=== PATIENT | female | born 1970 | race Caucasian/White ===

== ENCOUNTER 2016-11-16 12:08 | Emergency (ER) | payer OTHER ==
[2016-11-16] MEDS ORDERED: HYDROmorphone 1 MG/ML 1 ML SYRINGE IVP STA (12:29)
[2016-11-16] MEDS ORDERED: ONDANSETRON 4 MG/2 ML VIAL IVP STA (12:29)
--- NOTE | 2016-11-16 12:32 | ED ---
General Adult HPI - General Chief complaint: Abdominal Pain Stated complaint: Female /syncope Time Seen by Provider: 11/16/16 12:23 Source: patient, RN notes reviewed Mode of arrival: wheelchair Limitations: no limitations - History of Present Illness Initial comments: Patient 46-year-old female who presents emergency room today with a chief complaint of abdominal pain that started this morning. She does admit that when she is ovulating she experiences increased pain in the abdomen. She states this is same type pain and symptoms that she's had before but was much worse this morning. She states she's feeling pain in her lower abdomen pressure radiating up. Does admit some symptoms of nausea vomiting which is unusual for her with this pain. States pain was much higher than normal. She states she does have an appointment with her LOW EMISSION AUTOMOBILE DESIGNER this afternoon. She states pain was increasing in she decided to come here to the emergency room. Patient denies any recent fever, chills, shortness of breath, chest pain, back pain, numbness or tingling, dysuria or hematuria, constipation or diarrhea, headaches or visual changes, or any other complaints. - Related Data Home Medications Medication Instructions Recorded Confirmed Calcium Carbonate [Calcium] 600 mg PO DAILY 11/16/16 11/16/16 Cholecalciferol [Vitamin D3] 1,000 unit PO DAILY 11/16/16 11/16/16 Etodolac (Unknown Dose) 1 tab PO ONCE 11/16/16 11/16/16 traMADol HCL [Ultram] 50 mg PO ONCE 11/16/16 11/16/16 Previous Rx's Medication Instructions Recorded Etodolac [Lodine] 400 mg PO BID #15 tablet 11/16/16 Ondansetron Odt [Zofran ODT] 4 mg PO Q8HR PRN #20 tab 11/16/16 traMADol HCl [Ultram] 50 mg PO Q6H PRN #20 tab 11/16/16 Allergies Allergy/AdvReac Type Severity Reaction Status Date / Time banana Allergy Rash/Hives Verified 11/16/16 12:44 latex Allergy Rash/Hives Verified 11/16/16 12:44 Sulfa (Sulfonamide Allergy Swelling Verified 11/16/16 12:44 Antibiotics) sulfite Allergy Swelling Verified 11/16/16 12:44 Review of Systems ROS Statement: Those systems with pertinent positive or pertinent negative responses have been documented in the HPI. ROS Other: All systems not noted in ROS Statement are negative. Past Medical History Past Medical History: Thyroid Disorder Additional Past Medical History / Comment(s): ganglion cyst, palpitation 3 week of cycle - PMDD, in vitro (2 sets of twins). History of Any Multi-Drug Resistant Organisms: None Reported Past Surgical History: Section Past Anesthesia/Blood Transfusion Reactions: No Reported Reaction Past Psychological History: Anxiety Smoking Status: Never smoker Past Alcohol Use History: None Reported Past Drug Use History: None Reported - Past Family History Father Family Medical History: Cancer Additional Family Medical History / Comment(s): colon CA General Exam - General Exam Comments Initial Comments: General: The patient is awake and alert, in no distress, and does not appear acutely ill. Eye: Pupils are equal, round and reactive to light, extra-ocular movements are intact. No nystagmus. There is normal conjunctiva bilaterally. No signs of icterus. Ears, nose, mouth and throat: There are moist mucous membranes and no oral lesions. Neck: The neck is supple, there is no tenderness or JVD. Cardiovascular: There is a regular rate and rhythm. No murmur, rub or gallop is appreciated. Respiratory: Lungs are clear to auscultation, respirations are non-labored, breath sounds are equal. No wheezes, stridor, rales, or rhonchi. Gastrointestinal: Patient has normal appearance abdomen. Normal bowel sounds. Abdomen soft on palpation. Patient does have tenderness greatest in the left lower quadrant. No rebound tenderness no guarding. No CVA tenderness. Musculoskeletal: Normal ROM, no tenderness. Strength 5/5. Sensation intact. Pulses equal bilaterally 2+. Neurological: A&O x 3. CN II-XII intact, There are no obvious motor or sensory deficits. Coordination appears grossly intact. Speech is normal. Skin: Skin is warm and dry and no rashes or lesions are noted. Psychiatric: Cooperative, appropriate mood & affect, normal judgment. Limitations: no limitations Course Vital Signs 11/16/16 11/16/16 12:11 14:41 Temperature 98.3 F 97.9 F Pulse Rate 88 76 Respiratory 20 18 Rate Blood Pressure 120/55 108/56 O2 Sat by Pulse 99 98 Oximetry Medical Decision Making - Medical Decision Making Case discussed in detail with attending physician Dr. Kim. US shows Heterogeneous myometrium. Could reflect underlying leiomyomatous. Weakness no tenderness on the right side of the abdomen. Mildly tender on the left. There were discussed with patient about CT abdomen pelvis here in the emergency room. She states the pain does feel similar to pain that she's experienced in the past. She is quite CAT scan at this time. States she will follow-up. Advised to return if symptoms increase worsen. Will be discharged home advised follow- up with her COMPUTER SUPPORT TECHNICIAN. Will be given a prescription of Ultram to go home with. She states she's used this before in the past for this type pain. She states is consistent with pain that she's had in the past when she is ovulating with her uterus. She also be given nausea medication at home with her symptoms. Advised return for any other concerns. - Lab Data Result diagrams: 11/16/16 12:39 11/16/16 12:39 Lab Results 11/16/16 11/16/16 11/16/16 Range/Units 12:39 12:39 12:39 WBC 14.6 H (3.8-10.6) k/uL RBC 4.98 (3.80-5.40) m/uL Hgb 14.8 (11.4-16.0) gm/dL Hct 44.5 (34.0-46.0) % MCV 89.3 (80.0-100.0) fL MCH 29.7 (25.0-35.0) pg MCHC 33.3 (31.0-37.0) g/dL RDW 13.5 (11.5-15.5) % Plt Count 180 (150-450) k/uL Neutrophils % 88 % Lymphocytes % 6 % Monocytes % 3 % Eosinophils % 1 % Basophils % 0 % Neutrophils # 12.9 H (1.3-7.7) k/uL Lymphocytes # 0.9 L (1.0-4.8) k/uL Monocytes # 0.5 (0-1.0) k/uL Eosinophils # 0.2 (0-0.7) k/uL Basophils # 0.1 (0-0.2) k/uL Sodium (137-145) mmol/L Potassium (3.5-5.1) mmol/L Chloride (98-107) mmol/L Carbon Dioxide (22-30) mmol/L Anion Gap mmol/L BUN (7-17) mg/dL Creatinine (0.52-1.04) mg/dL Est GFR (MDRD) Af Amer (>60 ml/min/1.73 sqM) Est GFR (MDRD) Non-Af (>60 ml/min/1.73 sqM) Glucose (74-99) mg/dL Plasma Lactic Acid Nas 1.2 (0.7-2.0) mmol/L Calcium (8.4-10.2) mg/dL Total Bilirubin (0.2-1.3) mg/dL AST (14-36) U/L ALT (9-52) U/L Alkaline Phosphatase (38-126) U/L Total Protein (6.3-8.2) g/dL Albumin (3.5-5.0) g/dL Amylase 35 (30-110) U/L Lipase 35 (23-300) U/L Urine Color Urine Appearance (Clear) Urine pH (5.0-8.0) Ur Specific [place] (1.001-1.035) Urine Protein (Negative) Urine Glucose (UA) (Negative) Urine Ketones (Negative) Urine Blood (Negative) Urine Nitrite (Negative) Urine Bilirubin (Negative) Urine Urobilinogen (<2.0) mg/dL Ur Leukocyte Esterase (Negative) Urine WBC (0-5) /hpf Ur Squamous Epith Cells (0-4) /hpf Urine Mucus (None) /hpf Urine HCG, Qual (Not Detectd) 11/16/16 11/16/16 11/16/16 Range/Units 12:39 12:59 12:59 WBC (3.8-10.6) k/uL RBC (3.80-5.40) m/uL Hgb (11.4-16.0) gm/dL Hct (34.0-46.0) % MCV (80.0-100.0) fL MCH (25.0-35.0) pg MCHC (31.0-37.0) g/dL RDW (11.5-15.5) % Plt Count (150-450) k/uL Neutrophils % % Lymphocytes % % Monocytes % % Eosinophils % % Basophils % % Neutrophils # (1.3-7.7) k/uL Lymphocytes # (1.0-4.8) k/uL Monocytes # (0-1.0) k/uL Eosinophils # (0-0.7) k/uL Basophils # (0-0.2) k/uL Sodium 139 (137-145) mmol/L Potassium 4.0 (3.5-5.1) mmol/L Chloride 109 H (98-107) mmol/L Carbon Dioxide 20 L (22-30) mmol/L Anion Gap 10 mmol/L BUN 12 (7-17) mg/dL Creatinine 0.66 (0.52-1.04) mg/dL Est GFR (MDRD) Af Amer >60 (>60 ml/min/1.73 sqM) Est GFR (MDRD) Non-Af >60 (>60 ml/min/1.73 sqM) Glucose 104 H (74-99) mg/dL Plasma Lactic Acid Nas (0.7-2.0) mmol/L Calcium 9.2 (8.4-10.2) mg/dL Total Bilirubin 1.7 H (0.2-1.3) mg/dL AST 25 (14-36) U/L ALT 35 (9-52) U/L Alkaline Phosphatase 62 (38-126) U/L Total Protein 6.6 (6.3-8.2) g/dL Albumin 4.1 (3.5-5.0) g/dL Amylase (30-110) U/L Lipase (23-300) U/L Urine Color Yellow Urine Appearance Clear (Clear) Urine pH 6.5 (5.0-8.0) Ur Specific [place] 1.014 (1.001-1.035) Urine Protein Negative (Negative) Urine Glucose (UA) Negative (Negative) Urine Ketones Trace H (Negative) Urine Blood Negative (Negative) Urine Nitrite Negative (Negative) Urine Bilirubin Negative (Negative) Urine Urobilinogen <2.0 (<2.0) mg/dL Ur Leukocyte Esterase Trace H (Negative) Urine WBC 3 (0-5) /hpf Ur Squamous Epith Cells 1 (0-4) /hpf Urine Mucus Rare H (None) /hpf Urine HCG, Qual Not Detected (Not Detectd) Disposition Clinical Impression: Abdominal pain Disposition: HOME SELF-CARE Condition: Good Instructions: Abdominal Pain (ED) Additional Instructions: Please follow-up with your LOW EMISSION AUTOMOBILE DESIGNER over the next 1-2 days. Please use pain medication and nausea medication as prescribed. Please return to emergency room if any symptoms increase worsen or for any other concerns. Prescriptions: Etodolac [Lodine] 400 mg PO BID #15 tablet Ondansetron Odt [Zofran ODT] 4 mg PO Q8HR PRN #20 tab PRN Reason: Nausea traMADol HCl [Ultram] 50 mg PO Q6H PRN #20 tab PRN Reason: Pain Referrals: Chris Gross MD [Primary Care Provider] - 1-2 days Luba Camaar MD [STAFF PHYSICIAN] - 1-2 days Time of Disposition: 14:41
[2016-11-16 12:59] LABS: Basophils # (A) 0.1 k/uL (0-0.2); Basophils % (A) 0 %; CH 29.7; CHCM 33.5; Eosinophils # (A) 0.2 k/uL (0-0.7); Eosinophils % (A) 1 %; HCT 44.5 % (34.0-46.0); HDW 2.31; HGB 14.8 gm/dL (11.4-16.0); Luc # (Auto) 0.09; Luc % (Auto) 1; Lymphocytes # (A) 0.9 k/uL (1.0-4.8); Lymphocytes % (A) 6 %; MCH 29.7 pg (25.0-35.0); MCHC 33.3 g/dL (31.0-37.0); MCV 89.3 fL (80.0-100.0); Mean Platelet Volume 9.6; Monocytes # (A) 0.5 k/uL (0-1.0); Monocytes % (A) 3 %; Neutrophils # (A) 12.9 k/uL (1.3-7.7); Neutrophils % (A) 88 %; RBC 4.98 m/uL (3.80-5.40); RDW 13.5 % (11.5-15.5); WBC 14.6 k/uL (3.8-10.6); WBC (Perox) 13.95
--- NOTE | 2016-11-16 13:07 | XR ---
EXAMINATION TYPE: XR KUB DATE OF EXAM: 11/16/2016 COMPARISON: NONE HISTORY: Pain TECHNIQUE: Single supine KUB image of the abdomen is obtained FINDINGS: Small bowel demonstrates no evidence for dilatation or air fluid levels. Gas and fecal material is seen in non-distended colon. No convincing evidence for pneumoperitoneum. No unusual calcifications. The lung bases are clear. The osseous structures are intact. IMPRESSION: 1. Overall nonobstructive bowel gas pattern.
[2016-11-16 13:14] LABS: Amylase 35 U/L (30-110)
[2016-11-16 13:33] LABS: Appearance,Urine Clear (Clear); Bilirubin,Urine Negative (Negative); Glucose,Urine (UA) Negative (Negative); Ketones,Urine Trace (Negative); Leukocyte Esterase,Urine Trace (Negative); Mucus,Urine Rare /hpf; Nitrite,Urine Negative (Negative); PH, Urine 6.5 (5.0-8.0); Particle Count 1597; Protein,Urine Negative (Negative); Specific Gravity,Urine 1.014 (1.001-1.035); Squamous Epithelial Cell,Urine 1 /hpf (0-4); UA Billing (MACRO vs. MICRO) MICRO; Urobilinogen,Urine <2.0 mg/dL (<2.0); WBC,Urine 3 /hpf (0-5)
--- NOTE | 2016-11-16 13:53 | US ---
EXAMINATION TYPE: US transvaginal DATE OF EXAM: 11/16/2016 COMPARISON: NONE CLINICAL HISTORY: pain. Pelvic pain x 1 day, 2, para 4: 2 sets of twins, history of 2 c-secti ons and tubal ligation TECHNIQUE: Transvaginal (TV) Date of LMP: 2+ weeks ago EXAM MEASUREMENTS: Uterus: 12.3 x 6.9 x 6.3 cm Endometrial Stripe: 1.0 cm Right Ovary: not seen Left Ovary: not seen 1. Uterus: anteverted, enlarged, bulky, heterogeneous echotexture without any definite lesions seen at this time 2. Endometrium: appears wnl 3. Right Ovary: not seen at this time due to overlying bowel gas 4. Left Ovary: not seen at this time due to overlying bowel gas 5. Bilateral Adnexa: wnl 6. Posterior cul-de-sac: small amount of free fluid seen IMPRESSION: 1. The uterus is enlarged with heterogenous myometrium. This could reflect underlying small leiomyoma tous change. 2. Small amount of free fluid within the cul-de-sac.
[2016-11-16 14:17] LABS: ALT 35 U/L (9-52); AST 25 U/L (14-36); Alkaline Phosphatase 62 U/L (38-126); Anion Gap 10 mmol/L; Blood Urea Nitrogen 12 mg/dL (7-17); Calcium 9.2 mg/dL (8.4-10.2); Carbon Dioxide 20 mmol/L (22-30); Chloride 109 mmol/L (98-107); Glucose 104 mg/dL (74-99); Non-African American GFR(MDRD) >60 (>60 ml/min/1.73 sqM); Sodium 139 mmol/L (137-145); Total Bilirubin 1.7 mg/dL (0.2-1.3); Total Protein 6.6 g/dL (6.3-8.2)
[2016-11-16 15:07] VITALS: BP 100/56; PULSE 65; RESP 20; TEMP 98.4
== END 2016-11-16 15:07 | disposition home or self-care (01) ==
LOC: EC 12:08
DX: R10.32 Left lower quadrant pain (principal); R11.2 Nausea with vomiting, unspecified; R55 Syncope and collapse; Z79.1 Long term (current) use of non-steroidal anti-inflammatories (NSAID); Z79.891 Long term (current) use of opiate analgesic; Z79.899 Other long term (current) drug therapy; Z88.2 Allergy status to sulfonamides; Z91.040 Latex allergy status; Z91.018 Allergy to other foods
CPT/HCPCS: 36415; 80053; 82150; 83605; 83690; 85025; 81001; 81025; 87491; 87591; 74000; 76830; 99284; 96374; 96375; J2405; J1170

== ENCOUNTER 2016-11-18 21:37 | Emergency (ER) | payer OTHER ==
[2016-11-18 21:48] VITALS: RESP 18
[2016-11-18] MEDS ORDERED: SODIUM CHLORIDE 0.9% 1,000 ML IV STA (21:59)
[2016-11-18] MEDS ORDERED: ACETAMINOPHEN TAB 500 MG TAB PO STA (22:00)
[2016-11-18] MEDS ORDERED: ONDANSETRON 4 MG/2 ML VIAL IVP STA (22:00)
--- NOTE | 2016-11-18 22:05 | ED ---
General Adult HPI - General Chief complaint: Abdominal Pain Stated complaint: bloating/no bowel movement/fever Time Seen by Provider: 11/18/16 21:45 Source: patient, RN notes reviewed Mode of arrival: ambulatory Limitations: no limitations - History of Present Illness Initial comments: This is a 46-year-old female who presents emergency Department complaining of abdominal pain. Patient states she was here 2 days ago with abdominal pain due to transvaginal ultrasound was negative as well as the lab work according to the patient she states she went home and continued to have abdominal pain. Patient states the pain is been constant diffusely in her upper abdomen. Patient states driving the car hurts every time she gets a pump. Patient's coming in today because she now has a low-grade fever 100.4. Patient denies any vomiting since 2 days ago. Patient denies any diarrhea. Patient states she has no appetite whatsoever. Patient denies any difficulty breathing or cough patient denies any sore throat patient denies any neck pain. Patient denies any dysuria hematuria urinary frequency. - Related Data Home Medications Medication Instructions Recorded Confirmed L.acidoph,Paracasei, B.lactis 1 cap PO DAILY 11/18/16 11/18/16 [Probiotic] Simethicone 80 mg PO QID PRN 11/18/16 11/18/16 Previous Rx's Medication Instructions Recorded Etodolac [Lodine] 400 mg PO BID #15 tablet 11/16/16 Allergies Allergy/AdvReac Type Severity Reaction Status Date / Time avocado Allergy Swelling Verified 11/18/16 22:25 banana Allergy Rash/Hives Verified 11/18/16 22:25 latex Allergy Rash/Hives Verified 11/18/16 22:25 strawberry Allergy Swelling Verified 11/18/16 22:25 Sulfa (Sulfonamide Allergy Swelling Verified 11/18/16 22:25 Antibiotics) sulfite Allergy Swelling Verified 11/18/16 22:25 Review of Systems ROS Statement: Those systems with pertinent positive or pertinent negative responses have been documented in the HPI. ROS Other: All systems not noted in ROS Statement are negative. Past Medical History Past Medical History: Thyroid Disorder Additional Past Medical History / Comment(s): ganglion cyst, palpitation 3 week of cycle - PMDD, in vitro (2 sets of twins). History of Any Multi-Drug Resistant Organisms: None Reported Past Surgical History: Section Past Anesthesia/Blood Transfusion Reactions: No Reported Reaction Past Psychological History: Anxiety Smoking Status: Never smoker Past Alcohol Use History: None Reported Past Drug Use History: None Reported - Past Family History Father Family Medical History: Cancer Additional Family Medical History / Comment(s): colon CA General Exam - General Exam Comments Initial Comments: GENERAL: Patient is well-developed and well-nourished. Patient is nontoxic and well- hydrated and is in mild distress. ENT: Neck is soft and supple. No significant lymphadenopathy is noted. Oropharynx is clear. Moist mucous membranes. Neck has full range of motion without eliciting any pain. EYES: The sclera were anicteric and conjunctiva were pink and moist. Extraocular movements were intact and pupils were equal round and reactive to light. Eyelids were unremarkable. PULMONARY: Unlabored respirations. Good breath sounds bilaterally. No audible rales rhonchi or wheezing was noted. CARDIOVASCULAR: There is a regular rate and rhythm without any murmurs gallops or rubs. ABDOMEN: Patient is right upper quadrant abdominal pain. No palpable organomegaly was noted. There is no palpable pulsatile mass. SKIN: Skin is clear with no lesions or rashes and otherwise unremarkable. NEUROLOGIC: Patient is alert and oriented x3. Cranial nerves II through XII are grossly intact. Motor and sensory are also intact. Normal speech, volume and content. Symmetrical smile. MUSCULOSKELETAL: Normal extremities with adequate strength and full range of motion. No lower extremity swelling or edema. No calf tenderness. LYMPHATICS: No significant lymphadenopathy is noted PSYCHIATRIC: Normal psychiatric evaluation. Normal interpersonal interactions appears functionally intact in deals appropriately with others. No signs of depression. Limitations: no limitations Course Vital Signs 11/18/16 11/18/16 11/18/16 21:44 23:06 23:55 Temperature 100.4 F H 98.1 F Pulse Rate 89 72 76 Respiratory 18 18 18 Rate Blood Pressure 136/73 99/54 102/56 O2 Sat by Pulse 98 98 95 Oximetry 11/19/16 01:00 Temperature 98.0 F Pulse Rate 70 Respiratory 18 Rate Blood Pressure 96/54 O2 Sat by Pulse 96 Oximetry Medical Decision Making - Medical Decision Making CAT scan of the pelvis showed no acute abnormality. I went back into the room patient stated the pain is gotten better since been emergency department and in fact over the last 2 days and gotten considerably better. Patient states she had a bowel movement just prior to coming to the emergency department. Patient states she'll follow-up with her primary care doctor tomorrow. - Lab Data Result diagrams: 11/18/16 22:17 11/18/16 22:17 Lab Results 11/18/16 11/18/16 11/18/16 Range/Units 22:17 22:17 22:17 WBC 7.9 (3.8-10.6) k/uL RBC 4.53 (3.80-5.40) m/uL Hgb 13.7 (11.4-16.0) gm/dL Hct 39.8 (34.0-46.0) % MCV 87.7 (80.0-100.0) fL MCH 30.2 (25.0-35.0) pg MCHC 34.5 (31.0-37.0) g/dL RDW 13.1 (11.5-15.5) % Plt Count 170 (150-450) k/uL Neutrophils % 81 % Lymphocytes % 11 % Monocytes % 5 % Eosinophils % 2 % Basophils % 0 % Neutrophils # 6.4 (1.3-7.7) k/uL Lymphocytes # 0.9 L (1.0-4.8) k/uL Monocytes # 0.4 (0-1.0) k/uL Eosinophils # 0.1 (0-0.7) k/uL Basophils # 0.0 (0-0.2) k/uL Sodium 139 (137-145) mmol/L Potassium 3.9 (3.5-5.1) mmol/L Chloride 103 (98-107) mmol/L Carbon Dioxide 25 (22-30) mmol/L Anion Gap 11 mmol/L BUN 10 (7-17) mg/dL Creatinine 0.80 (0.52-1.04) mg/dL Est GFR (MDRD) Af Amer >60 (>60 ml/min/1.73 sqM) Est GFR (MDRD) Non-Af >60 (>60 ml/min/1.73 sqM) Glucose 91 (74-99) mg/dL Plasma Lactic Acid Nas (0.7-2.0) mmol/L Calcium 9.5 (8.4-10.2) mg/dL Total Bilirubin 1.8 H (0.2-1.3) mg/dL AST 20 (14-36) U/L ALT 46 (9-52) U/L Alkaline Phosphatase 84 (38-126) U/L Total Protein 6.3 (6.3-8.2) g/dL Albumin 3.7 (3.5-5.0) g/dL Amylase 30 (30-110) U/L Lipase 24 (23-300) U/L Urine Color Urine Appearance (Clear) Urine pH (5.0-8.0) Ur Specific [place] (1.001-1.035) Urine Protein (Negative) Urine Glucose (UA) (Negative) Urine Ketones (Negative) Urine Blood (Negative) Urine Nitrite (Negative) Urine Bilirubin (Negative) Urine Urobilinogen (<2.0) mg/dL Ur Leukocyte Esterase (Negative) Urine RBC (0-5) /hpf Urine WBC (0-5) /hpf Ur Squamous Epith Cells (0-4) /hpf Urine Mucus (None) /hpf Urine HCG, Qual Not Detected (Not Detectd) 11/18/16 11/18/16 Range/Units 22:17 22:17 WBC (3.8-10.6) k/uL RBC (3.80-5.40) m/uL Hgb (11.4-16.0) gm/dL Hct (34.0-46.0) % MCV (80.0-100.0) fL MCH (25.0-35.0) pg MCHC (31.0-37.0) g/dL RDW (11.5-15.5) % Plt Count (150-450) k/uL Neutrophils % % Lymphocytes % % Monocytes % % Eosinophils % % Basophils % % Neutrophils # (1.3-7.7) k/uL Lymphocytes # (1.0-4.8) k/uL Monocytes # (0-1.0) k/uL Eosinophils # (0-0.7) k/uL Basophils # (0-0.2) k/uL Sodium (137-145) mmol/L Potassium (3.5-5.1) mmol/L Chloride (98-107) mmol/L Carbon Dioxide (22-30) mmol/L Anion Gap mmol/L BUN (7-17) mg/dL Creatinine (0.52-1.04) mg/dL Est GFR (MDRD) Af Amer (>60 ml/min/1.73 sqM) Est GFR (MDRD) Non-Af (>60 ml/min/1.73 sqM) Glucose (74-99) mg/dL Plasma Lactic Acid Nas 0.7 (0.7-2.0) mmol/L Calcium (8.4-10.2) mg/dL Total Bilirubin (0.2-1.3) mg/dL AST (14-36) U/L ALT (9-52) U/L Alkaline Phosphatase (38-126) U/L Total Protein (6.3-8.2) g/dL Albumin (3.5-5.0) g/dL Amylase (30-110) U/L Lipase (23-300) U/L Urine Color Yellow Urine Appearance Clear (Clear) Urine pH 5.5 (5.0-8.0) Ur Specific [place] 1.013 (1.001-1.035) Urine Protein Trace H (Negative) Urine Glucose (UA) Negative (Negative) Urine Ketones Negative (Negative) Urine Blood Trace H (Negative) Urine Nitrite Negative (Negative) Urine Bilirubin 2+ H (Negative) Urine Urobilinogen <2.0 (<2.0) mg/dL Ur Leukocyte Esterase Negative (Negative) Urine RBC 1 (0-5) /hpf Urine WBC 2 (0-5) /hpf Ur Squamous Epith Cells 1 (0-4) /hpf Urine Mucus Rare H (None) /hpf Urine HCG, Qual (Not Detectd) Disposition Clinical Impression: Abdominal pain Disposition: HOME SELF-CARE Condition: Good Instructions: Abdominal Pain (ED) Referrals: Chris Gross MD [Primary Care Provider] - 1-2 days Time of Disposition: 00:33
[2016-11-18 22:31] LABS: Basophils % (A) 0 %; CH 29.3; CHCM 33.6; Eosinophils # (A) 0.1 k/uL (0-0.7); Eosinophils % (A) 2 %; HCT 39.8 % (34.0-46.0); HDW 2.32; HGB 13.7 gm/dL (11.4-16.0); Luc # (Auto) 0.11; Luc % (Auto) 1; Lymphocytes # (A) 0.9 k/uL (1.0-4.8); Lymphocytes % (A) 11 %; MCH 30.2 pg (25.0-35.0); MCHC 34.5 g/dL (31.0-37.0); MCV 87.7 fL (80.0-100.0); Mean Platelet Volume 9.5; Monocytes # (A) 0.4 k/uL (0-1.0); Monocytes % (A) 5 %; Neutrophils # (A) 6.4 k/uL (1.3-7.7); Neutrophils % (A) 81 %; RBC 4.53 m/uL (3.80-5.40); RDW 13.1 % (11.5-15.5); WBC 7.9 k/uL (3.8-10.6); WBC (Perox) 7.89
[2016-11-18 22:33] LABS: Appearance,Urine Clear (Clear); Bilirubin,Urine 2+ (Negative); Glucose,Urine (UA) Negative (Negative); Ketones,Urine Negative (Negative); Leukocyte Esterase,Urine Negative (Negative); Mucus,Urine Rare /hpf; Nitrite,Urine Negative (Negative); PH, Urine 5.5 (5.0-8.0); Particle Count 2340; Protein,Urine Trace (Negative); RBC,Urine 1 /hpf (0-5); Specific Gravity,Urine 1.013 (1.001-1.035); Squamous Epithelial Cell,Urine 1 /hpf (0-4); UA Billing (MACRO vs. MICRO) MICRO; Urobilinogen,Urine <2.0 mg/dL (<2.0); WBC,Urine 2 /hpf (0-5)
[2016-11-18 22:42] LABS: ALT 46 U/L (9-52); AST 20 U/L (14-36); Alkaline Phosphatase 84 U/L (38-126); Amylase 30 U/L (30-110); Anion Gap 11 mmol/L; Blood Urea Nitrogen 10 mg/dL (7-17); Calcium 9.5 mg/dL (8.4-10.2); Carbon Dioxide 25 mmol/L (22-30); Chloride 103 mmol/L (98-107); Glucose 91 mg/dL (74-99); Non-African American GFR(MDRD) >60 (>60 ml/min/1.73 sqM); Potassium 3.9 mmol/L (3.5-5.1); Sodium 139 mmol/L (137-145); Total Bilirubin 1.8 mg/dL (0.2-1.3); Total Protein 6.3 g/dL (6.3-8.2)
--- NOTE | 2016-11-18 22:47 | XR ---
EXAM: XR Abdomen, 1 View CLINICAL HISTORY: Reason: abdominal pain TECHNIQUE: Frontal supine view of the abdomen/pelvis. COMPARISON: 11/16/2016 FINDINGS: Intraperitoneal space: No pneumatosis or pneumoperitoneum. Gastrointestinal tract: Unremarkable. No dilation. Bones/joints: No acute fracture or malalignment. Soft tissues: Presumed tubal ligation clips are noted. Other findings: Probable hepatomegaly. IMPRESSION: No acute findings.
[2016-11-18] MEDS ORDERED: RX INFO: IV CONTRAST WAS GIVEN 1 EACH MISC MISCELLANE PRN (23:01)
--- NOTE | 2016-11-19 00:19 | CT ---
EXAM: CT Abdomen and Pelvis With Intravenous Contrast CLINICAL HISTORY: Reason: Pain TECHNIQUE: Axial computed tomography images of the abdomen and pelvis with intravenous contrast. CTDI is 13.1, 13.1 mGy and DLP is 941 mGy-cm. This CT exam was performed using one or more of the following dose reduction techniques: automated exposure control, adjustment of the mA and/or kV according to patient size, and/or use of iterative reconstruction technique. COMPARISON: No relevant prior studies available. FINDINGS: Lower thorax: No acute findings. ABDOMEN: Liver: Hepatomegaly. No focal hepatic lesions. Gallbladder and bile ducts: Unremarkable. No calcified stones. Pancreas: Unremarkable. Spleen: Unremarkable. Adrenals: Unremarkable. Kidneys and ureters: Unremarkable. No solid mass. No hydronephrosis. Stomach and bowel: Unremarkable. Bowel is nondilated. Appendix: No findings to suggest acute appendicitis. PELVIS: Bladder: Unremarkable. Reproductive: Indeterminate 2 cm crenated left adnexal cyst. ABDOMEN and PELVIS: Intraperitoneal space: Nonspecific pelvic free fluid. Surgical clips project in the right posterior pelvis. Bones/joints: No acute osseous abnormality. Soft tissues: Tiny fat-containing periumbilical hernia. Vasculature: Unremarkable. No abdominal aortic aneurysm. Lymph nodes: Unremarkable. No enlarged lymph nodes. IMPRESSION: A 2 cm crenated left adnexal cyst and trace pelvic free fluid are likely physiologic.
[2016-11-19 01:02] VITALS: BP 96/54; PULSE 70; TEMP 98
== END 2016-11-19 01:16 | disposition home or self-care (01) ==
LOC: EC 21:37
DX: R10.11 Right upper quadrant pain (principal); Z88.2 Allergy status to sulfonamides; Z88.8 Allergy status to other drugs, medicaments and biological substances; Z91.018 Allergy to other foods; Z91.040 Latex allergy status
CPT/HCPCS: 99284; 96374; 96361; 36415; 80053; 82150; 83605; 83690; 85025; 81001; 81025; 74000; 74177; J2405; Q9967

== ENCOUNTER → 2016-11-30 | Outpatient (CLI) | payer OTHER ==
--- NOTE | 2016-11-30 09:31 | NM ---
EXAMINATION TYPE: NM hepatobiliary w EF DATE OF EXAM: 11/30/2016 COMPARISON: NONE INDICATION: Chronic cholecystitis TECHNIQUE: After the intravenous administration of 5.2 mCi Tc 99m Mebrofenin hepatobiliary scintigrap hy is performed. Images were obtained immediately post injection. FINDINGS: There is prompt uptake and excretion of radiotracer by the liver. Extrahepatic ducts are identified at 8 minutes. The gallbladder is visualized within 13 minutes. Small bowel activity is noted within 19 minutes. At one hour 8 ounces of oral ensure plus is given to mimic CCK and gallbladder ejection fraction is c alculated at 96 %, which is markedly elevated. (Normal >35% and <80%.). IMPRESSION: 1. Biliary hyperkinesia with an ejection fraction of 96%.
== END | disposition home or self-care (01) ==
LOC: RADNMMAIN 07:13
PROVIDERS: ATTEND Surgery
DX: K82.8 Other specified diseases of gallbladder (principal); K81.1 Chronic cholecystitis
CPT/HCPCS: 78226; A9537

== ENCOUNTER 2016-12-02 09:13 | Day surgery (SDC) | payer OTHER ==
[2016-11-30 10:07] VITALS: BMI 30.4
[~2016-12-02 09:13] MED LIST: LACTATED RINGERS 1,000 ML IV SCH; LIDOCAINE 1% 20 ML VIAL (10MG/ML) FOR IV START INTRADERMA PRN
[2016-12-02 09:21] VITALS: RESP 18; TEMP 98
[2016-12-02] MEDS ORDERED: LACTATED RINGERS 1,000 ML IV ONE (09:24)
[2016-12-02 09:32] LABS: Glucose,Whole Blood 85 mg/dL (75-99)
[2016-12-02] MEDS ORDERED: ONDANSETRON 4 MG/2 ML VIAL IVP ONE (09:53)
[2016-12-02] MEDS ORDERED: PROPOFOL 10 MG/ML 20 ML VIAL IV ONE (10:21)
[2016-12-02] MEDS ORDERED: MIDAZOLAM 2 MG/2 ML VIAL ONE (10:21)
[2016-12-02] MEDS ORDERED: fentaNYL (PF) 50 MCG/ML 2 ML AMP ONE (10:21)
[2016-12-02] MEDS ORDERED: LIDOCAINE 1% INJ 10MG/ML (20 ML MDV) ONE (10:21)
--- NOTE | 2016-12-02 10:22 | P.GSHP ---
History of Present Illness H&P Date: 12/02/16 Chief Complaint: Abdominal pain,., Nausea, GERD This is a 46-year-old female who's had complaints of epigastric and right upper quadrant pain. She's had also issues with some left lower quadrant pain. Patient rents today for EGD and colonoscopy. Past Medical History Past Medical History: Thyroid Disorder Additional Past Medical History / Comment(s): Recent ER Visit-Abdominal pain and distention,nausea/vomiting,confusion, freq diarrhea hx ganglion cyst, palpitation at night, PMDD,blothcy skin chest History of Any Multi-Drug Resistant Organisms: None Reported Past Surgical History: Section, Tubal Ligation Additional Past Surgical History / Comment(s): x2 Past Anesthesia/Blood Transfusion Reactions: Motion Sickness, Postoperative Nausea & Vomiting (PONV) Additional Past Anesthesia/Blood Transfusion Reaction / Comment(s): takes a while to wake up with anesthesia Smoking Status: Never smoker - Past Family History Mother Family Medical History: No Reported History Father Family Medical History: Cancer Additional Family Medical History / Comment(s): colon CA Medications and Allergies Home Medications Medication Instructions Recorded Confirmed Type No Known Home Medications [No 11/30/16 11/30/16 History Known Home Medications] Allergies Allergy/AdvReac Type Severity Reaction Status Date / Time avocado Allergy Swelling Verified 11/30/16 09:54 banana Allergy Rash/Hives Verified 11/30/16 09:54 latex Allergy Rash/Hives Verified 11/30/16 09:54 strawberry Allergy Swelling Verified 11/30/16 09:54 Sulfa (Sulfonamide Allergy Swelling Verified 11/30/16 09:54 Antibiotics) sulfite Allergy Swelling Verified 11/30/16 09:54 Surgical - Exam Vital Signs Temp Pulse Resp BP Pulse Ox 98.0 F 67 18 125/78 99 12/02/16 09:20 12/02/16 09:20 12/02/16 09:20 12/02/16 09:20 12/02/16 09:20 - General well developed, no distress - Eyes PERRL - ENT normal pinna - Neck no masses - Respiratory normal expansion - Cardiovascular Rhythm: regular - Abdomen Abdomen: soft, non tender Assessment and Plan Plan: History of GERD, abdominal pain we will perform EGD and colonoscopy.
--- NOTE | 2016-12-02 10:42 | P.OP ---
Date of Procedure: 12/02/16 Preoperative Diagnosis: Abdominal pain GERD Postoperative Diagnosis: Mild duodenitis Mild antral gastritis No evidence of hiatal hernia No evidence of esophagitis Normal colonoscopy Procedure(s) Performed: EGD Colonoscopy Implants: Anesthesia: MAC Surgeon: Albin Guzman Pathology: other (Duodenum, antrum) Condition: stable Disposition: PACU Indications for Procedure: Operative Findings: Description of Procedure: PROCEDURE: The patient was placed on the endoscopy table in the lateral position. Digital rectal examination was performed which revealed no abnormalities. . Flexible colonoscope was then placed in the patient's anus and passed throughout the entire colon. The ileocecal valve was visualized. The cecum, ascending, transverse, descending and sigmoid colon were normal. The rectum was normal as well. There were no masses, polyps or diverticula noted in the entire colon. Next, the gastroscope placed oropharynx. The scope was then placed into the esophagus and stomach. Scope was then placed through the pylorus. The first and second portion of duodenum appeared minimally inflamed a biopsies performed. The scope was then brought back the antrum and this appeared mildly inflamed. A biopsies performed. Scope was then retroflexed and the remainder of the stomach appeared normal. There is no evidence of a hiatal hernia. The GE junction was at the Center meters. The distal esophagus appeared normal. The proximal esophagus. Normal. Scope was withdrawn for patient. The patient's HIDA scan was reviewed. The patient has evidence of biliary hyperkinesis. She'll follow-up in the office.
[2016-12-02 10:48] VITALS: BP 102/44; PULSE 55
== END 2016-12-02 11:22 | disposition home or self-care (01) ==
LOC: ORWHC2ENDO 09:13
PROVIDERS: ATTEND Surgery
DX: K29.50 Unspecified chronic gastritis without bleeding (principal); K29.80 Duodenitis without bleeding; J45.998 Other asthma; E07.9 Disorder of thyroid, unspecified; I20.9 Angina pectoris, unspecified; Z88.2 Allergy status to sulfonamides; Z91.040 Latex allergy status; Z80.0 Family history of malignant neoplasm of digestive organs
CPT/HCPCS: 81025; 88305; 88342; 45378; 43239; J2250; J2405; J2001; J3010; J2704

== ENCOUNTER 2018-04-14 08:55 | Emergency (ER) | payer OTHER ==
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
[2018-04-14 11:24] VITALS: BP 128/70; PULSE 69; RESP 16; TEMP 97.8
== END 2018-04-14 11:22 | disposition home or self-care (01) ==
LOC: EC 08:55
DX: Z04.1 Encounter for examination and observation following transport accident (principal); F41.9 Anxiety disorder, unspecified; Z88.2 Allergy status to sulfonamides; Z91.02 Food additives allergy status; Z91.018 Allergy to other foods; Z91.040 Latex allergy status; Z79.899 Other long term (current) drug therapy; V49.49XA Driver injured in collision with other motor vehicles in traffic accident, initial encounter; Y92.410 Unspecified street and highway as the place of occurrence of the external cause
CPT/HCPCS: 70450; 71046; 72125; 99284

== ENCOUNTER → 2018-04-17 | Outpatient (CLI) | payer OTHER ==
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
== END | disposition home or self-care (01) ==
LOC: RADXRMAIN 14:30
PROVIDERS: ATTEND Physician Assistant
DX: M16.12 Unilateral primary osteoarthritis, left hip (principal); M25.512 Pain in left shoulder
CPT/HCPCS: 73501

== ENCOUNTER → 2018-04-21 | Outpatient (CLI) | payer OTHER ==
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
== END ==
LOC: RADCTMAIN 11:25
PROVIDERS: ATTEND Family Medicine
DX: S26.91XD Contusion of heart, unspecified with or without hemopericardium, subsequent encounter (principal)
CPT/HCPCS: 71275; Q9967

== ENCOUNTER → 2018-05-29 | Outpatient (CLI) | payer OTHER ==
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
== END | disposition home or self-care (01) ==
LOC: RADMRIMAIN 07:11
PROVIDERS: ATTEND Psychiatry & Neurology Neurology
DX: G44.321 Chronic post-traumatic headache, intractable (principal)
CPT/HCPCS: 70553; A9585

== ENCOUNTER → 2018-07-06 | Outpatient (CLI) | payer OTHER ==
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
== END | disposition home or self-care (01) ==
LOC: RADXRMAIN 11:57
PROVIDERS: ATTEND Family Medicine
DX: M51.34 Other intervertebral disc degeneration, thoracic region (principal)
CPT/HCPCS: 72072

== ENCOUNTER 2018-11-08 08:15 | Observation (INO) | payer OTHER ==
[2018-11-06 16:12] VITALS: BMI 34.2
[~2018-11-08 08:15] MED LIST changes: +BACITRACIN 50,000 UNIT, POLYMYXIN B 500,000 UNIT in SODIUM CHLORIDE 0.9% IRRIGATIO 1,00... IRRIGATION ONE; -LACTATED RINGERS 1,000 ML IV SCH; +ceFAZolin IN SWFI 2 GM/20 ML SYRINGE IVP ONE
[2018-11-08] MEDS: LACTATED RINGERS 1,000 ML IV SCH (08:48)
[2018-11-08] MEDS: ONDANSETRON 4 MG/2 ML VIAL IVP ONE ×2 (08:48→12:52)
[2018-11-08] MEDS ORDERED: SCOPOLAMINE 1.5MG/72HR PATCH TRANSDERM ONE (08:48)
[2018-11-08] MEDS ORDERED: MIDAZOLAM 2 MG/2 ML VIAL ONE (09:47)
[2018-11-08] MEDS ORDERED: fentaNYL (PF) 50 MCG/ML 2 ML AMP ONE (09:47)
[2018-11-08] MEDS ORDERED: SUCCINYLCHOLINE CHLORIDE 100 MG/5 ML SYR IV ONE (09:47)
[2018-11-08] MEDS ORDERED: GLYCOPYRROLATE 0.2 MG/ML 2 ML VIAL ONE (09:47)
[2018-11-08] MEDS ORDERED: PHENYLEPHRINE-0.9% NACL SYG 1 MG/10 ML SYRINGE ONE (09:47)
[2018-11-08] MEDS ORDERED: DEXAMETHASONE SOD PHOS (MDV) 100 MG/10 ML VIAL ONE (09:47)
[2018-11-08] MEDS ORDERED: ROCURONIUM BROMIDE 10 MG/ML 10 ML VIAL IV ONE (09:47)
[2018-11-08] MEDS ORDERED: LIDOCAINE 1% INJ 10MG/ML (20 ML MDV) ONE (09:47)
[2018-11-08] MEDS ORDERED: PROPOFOL 10 MG/ML 20 ML VIAL IV ONE (09:47)
[2018-11-08] MEDS ORDERED: NEOSTIGMINE 1 MG/ML 10 ML VIAL ONE (09:47)
[2018-11-08] MEDS ORDERED: ePHEDrine SULFATE/0.9% NACL/PF 50 MG/5 ML SYRINGE IV ONE (09:47)
[2018-11-08] MEDS ORDERED: ONDANSETRON 4 MG/2 ML VIAL ONE (09:47)
[2018-11-08] MEDS ORDERED: THROMBIN (BOVINE) 5,000 UNIT VIAL TOPICAL ONE (10:00)
[2018-11-08] MEDS ORDERED: LIDOCAINE 0.5%-EPI 1:200,000 50 ML VIAL SQ ONE ×2 (10:00)
[2018-11-08] MEDS ORDERED: GELATIN 1 EACH FILM TOPICAL ONE (10:00)
--- NOTE | 2018-11-08 11:01 | XR ---
EXAMINATION TYPE: XR cervical spine 1V DATE OF EXAM: 11/08/2018 COMPARISON: NONE HISTORY: Neck pain. Intraoperative needle placement TECHNIQUE/FINDINGS: Single crosstable lateral view of the cervical spine was obtained in the OR. Initial image demonstrat es needle localization at the C5-C6 intervertebral disc space. Patient is noted to be intubated with straightening of usual cervical lordosis and moderate multilevel degenerative disc disease. Visualize d vertebral body heights are maintained. IMPRESSION: Intraoperative localization of the cervical spine at the C5-C6 intervertebral disc space.
[2018-11-08] MEDS ORDERED: LACTATED RINGERS 1,000 ML IV ONE (11:28)
[2018-11-08] MEDS ORDERED: HYDROmorphone 1 MG/ML 1 ML SYRINGE IVP PRN (11:45)
[2018-11-08] MEDS ORDERED: ACETAMINOPHEN TAB 325 MG TAB PO PRN (11:45)
[2018-11-08] MEDS ORDERED: HYDROmorphone 0.5 MG/0.5 ML SYRINGE IVP PRN (11:45)
[2018-11-08] MEDS ORDERED: BENZOCAINE/MENTHOL LOZENG 1 EACH LOZENGE MUCOUS MEM PRN (11:45)
[2018-11-08] MEDS ORDERED: ONDANSETRON 4 MG/2 ML VIAL IVP PRN (11:45)
[2018-11-08] MEDS ORDERED: HYDROcodone/APAP 5-325MG 1 EACH TAB PO PRN (11:46)
--- NOTE | 2018-11-08 11:47 | XR ---
EXAMINATION TYPE: XR cervical spine 1V DATE OF EXAM: 11/08/2018 COMPARISON: NONE HISTORY: Localization. Intraoperative exam. Neck pain. TECHNIQUE/FINDINGS: Intraoperative crosstable lateral demonstrates anterior cervical fusion device bridging the at least the C5-C6 vertebral bodies with nonvisualization of the remainder of the cervical thoracic junction. The patient is again intubated with straightening of usual cervical lordosis and degenerative disc di sease. IMPRESSION: Placement of an anterior cervical fusion device placement at the C5-C6, with its inferior margin incompletely visualized.
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
[2018-11-08] MEDS: HYDROmorphone 0.5 MG/0.5 ML SYRINGE IVP PRN ×2 (12:45→12:52)
[2018-11-08] MEDS ORDERED: diphenhydrAMINE 50 MG/ML 1 ML VIAL IVP ONE (13:06)
[2018-11-08] MEDS: SODIUM CHLORIDE 0.9% 1,000 ML IV SCH (13:20)
[2018-11-08] MEDS: HYDROcodone/APAP 5-325MG 1 EACH TAB PO PRN ×2 (14:07→20:19)
[2018-11-08] MEDS: GABAPENTIN 300 MG CAP PO SCH ×2 (15:51→21:13)
[2018-11-08] MEDS: ceFAZolin IN SWFI 2 GM/20 ML SYRINGE IVP SCH (15:51)
[2018-11-08] MEDS ORDERED: FLUoxetine HCL 20 MG CAP PO SCH (21:00)
[2018-11-09] MEDS: ceFAZolin IN SWFI 2 GM/20 ML SYRINGE IVP SCH (00:15)
[2018-11-09] MEDS: HYDROcodone/APAP 5-325MG 1 EACH TAB PO PRN ×3 (00:15→09:14)
[2018-11-09] MEDS: SODIUM CHLORIDE 0.9% 1,000 ML IV SCH (04:40)
[2018-11-09] MEDS: LACTATED RINGERS 1,000 ML IV SCH (05:18)
[2018-11-09 07:21] VITALS: BP 106/66; PULSE 67; RESP 16; TEMP 98
[2018-11-09] MEDS: GABAPENTIN 300 MG CAP PO SCH (09:13)
--- NOTE | 2018-11-09 09:31 | P.DS ---
Providers Date of admission: 11/09/18 06:21 Attending physician: Abdirashid Starks Primary care physician: Chris Gross Hospital Course: The patient presented on the day of admission as per their operative note. She had disc herniation at C5 6 and C6 7 and underwent her cervical decompression with discectomy and fusion as per her operative note. She feels her arms are doing well. She says that she had improvement in her radicular symptoms at her arms yesterday after surgery. She has been slow to eat foods but has been able to tolerate soft eggs. Physical Exam The incision site is clean dry and intact. There is no erythema no drainage. There is no purulence no evidence of infection. Her neck is soft and supple. There is no significant drainage or swelling. There is no tension. Abdomen soft and nontender. Chest has good excursion with deep inspiration and expiration. The patient has active and passive range of motion intact at the upper and lower extremities. There is no acute change in neurologic status. She has good motion in her bilateral upper extremities. Hospital Course Postoperative day #1 status post anterior cervical decompression with discectomy and fusion C5 6 C6 7 for her disc herniation with upper extremity radiculopathy and weakness. Patient seems to be doing better since her surgery has making progress. The incision site seems to be healing appropriately. The patient has been making good progress postoperatively. They have completed the prophylactic antibiotics without any signs or symptoms of infection. The patient has been able to advance their diet, and is tolerating diet adequately. The pain was initially controlled with IV medications and is now controlled appropriately with oral medications. The patient has been able to increase their mobilization. The patient has progressed appropriately. I think they are in good stable condition for discharge today. They will be sent home with appropriate prescriptions. I answered their questions to the best of my ability in a language that they can understand and they are agreeable with the plan. They will follow up as directed in approximately 2 weeks or sooner if she is having any problems. Patient Condition at Discharge: Good Plan - Discharge Summary Discharge Rx Participant: No New Discharge Prescriptions: No Action FLUoxetine HCL [PROzac] 20 mg PO HS Hydrocodone/Acetaminophen [[place] 5-325] 1 tab PO BID PRN PRN Reason: Pain Celecoxib [CeleBREX] 200 mg PO DAILY PRN PRN Reason: Inflammation Gabapentin [Neurontin] 300 mg PO TID Etodolac 500 mg PO BID PRN PRN Reason: Inflammation Acetaminophen [Tylenol Extra Strength] 1,000 mg PO Q4H PRN PRN Reason: Pain Discharge Medication List FLUoxetine HCL [PROzac] 20 mg PO HS 04/14/18 [History] Acetaminophen [Tylenol Extra Strength] 1,000 mg PO Q4H PRN 11/06/18 [History] Celecoxib [CeleBREX] 200 mg PO DAILY PRN 11/06/18 [History] Etodolac 500 mg PO BID PRN 11/06/18 [History] Gabapentin [Neurontin] 300 mg PO TID 11/06/18 [History] Hydrocodone/Acetaminophen [[place] 5-325] 1 tab PO BID PRN 11/06/18 [History] Follow up Appointment(s)/Referral(s): Abdirashid Starks DO [Doctor of Osteopathic Medicine] - 2 Weeks Patient Instructions/Handouts: Anterior Cervical Discectomy (DC) Activity/Diet/Wound Care/Special Instructions: Keep site clean. May shower with waterproof Tegaderm intact. Do not soak in a tub. After 72 hours postoperatively, patient May remove dressing and then may shower with area uncovered. Leave Steri-Strips intact and allow them to fray off on their own. May ambulate as tolerated. Avoid heavy or rigorous activity. No repetitive bending twisting or lifting. No overhead work. May apply ice to area for 20 minutes at a time up to 4 times a day as needed for pain Discharge Disposition: HOME SELF-CARE
== END 2018-11-09 10:44 | disposition home or self-care (01) ==
LOC: OR 08:15 → 4SSUR 12:57 → OR 11-09 06:20 → 4SSUR 11-09 06:21
PROVIDERS: ADMIT Orthopaedic Surgery Orthopaedic Surgery of the Spine; ATTEND Orthopaedic Surgery Orthopaedic Surgery of the Spine
DX: S13.161A Dislocation of C5/C6 cervical vertebrae, initial encounter (principal); S13.171A Dislocation of C6/C7 cervical vertebrae, initial encounter; M48.02 Spinal stenosis, cervical region; M54.12 Radiculopathy, cervical region; E78.5 Hyperlipidemia, unspecified; E03.9 Hypothyroidism, unspecified; H91.90 Unspecified hearing loss, unspecified ear; Z97.3 Presence of spectacles and contact lenses; Z91.040 Latex allergy status; Z88.2 Allergy status to sulfonamides; Z91.018 Allergy to other foods; Z79.899 Other long term (current) drug therapy; Z82.49 Family history of ischemic heart disease and other diseases of the circulatory system; Z79.1 Long term (current) use of non-steroidal anti-inflammatories (NSAID)
CPT/HCPCS: 22551; 22552; 20931; 81025; 72020; G0378; C1713 ×2; C1762; J2250; J1200; J2710; J2405; J2001; J3010; J1100; J2370; J0330; J2704; J1170; J0690 ×2

== ENCOUNTER → 2023-05-04 | Outpatient (CLI) | payer OTHER ==
--- NOTE | 2023-05-05 08:56 | XR ---
EXAMINATION TYPE: XR foot complete RT DATE OF EXAM: 05/04/2023 COMPARISON: None HISTORY: Pain, fall TECHNIQUE: 3 view right foot FINDINGS: No acute fractures. Joint spaces are preserved. Soft tissues are unremarkable. Follow up exams can be performed 7-10 days from acute trauma for continued pain. IMPRESSION: 1. No acute osseous abnormality right foot
== END | disposition home or self-care (01) ==
LOC: RADXRMAIN 17:32
PROVIDERS: ATTEND Family Medicine
DX: M79.671 Pain in right foot (principal)

== ENCOUNTER 2023-12-31 13:40 | Emergency (ER) | payer OTHER ==
[2023-12-31 13:52] VITALS: TEMP 98
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
[2023-12-31] MEDS: IBUPROFEN 600 MG TAB PO STA (14:26)
--- NOTE | 2023-12-31 15:35 | XR ---
EXAMINATION TYPE: XR knee complete LT DATE OF EXAM: 12/31/2023 2:40 PM CLINICAL INDICATION: Female, 53 years old with history of pain; [facility] COMPARISON: None. TECHNIQUE: XR knee complete LT; examined in Frontal, lateral and oblique projections. FINDINGS: No evidence of any acute osseous pathology, soft tissue swelling, or joint effusion is no rosalio. Tricompartmental osteophyte formation involving the femoral condyles, tibial plateau and patella . Mild joint space narrowing. IMPRESSION: 1. No acute osseous pathology. 2. Mild tricompartmental osteoarthritic changes.
[2023-12-31 16:00] VITALS: BP 127/57; PULSE 72; RESP 19
== END 2023-12-31 16:00 | disposition home or self-care (01) ==
LOC: EC 13:40
CPT/HCPCS: 99283